=== PATIENT | female | born 1995 | race Caucasian/White ===

== ENCOUNTER 2020-11-21 23:41 | Emergency (ER) | payer MEDICAID ==
[~2020-11-21] VITALS: Ht 157.5 cm; Wt 87.0 kg
[2020-11-22 00:40] VITALS: BP 132/78
== END 2020-11-22 01:50 | disposition left against medical advice (07) ==
LOC: ER 23:41
DX: R10.2 Pelvic and perineal pain (principal); N89.8 Other specified noninflammatory disorders of vagina
CPT/HCPCS: 99281

== ENCOUNTER 2021-02-25 21:27 | Observation (INO) | payer MEDICAID ==
[~2021-02-25] VITALS: Ht 157.5 cm; Wt 91.2 kg
[2021-02-25] MEDS ORDERED: PNV1TAB.3 PO (22:06)
== END 2021-02-26 00:01 | disposition home or self-care (01) ==
LOC: 8 EST A/PP 21:27
PROVIDERS: ADMIT Obstetrics & Gynecology; ATTEND Obstetrics & Gynecology
DX: O26.892 Other specified pregnancy related conditions, second trimester (principal); R10.2 Pelvic and perineal pain; O36.8120 Decreased fetal movements, second trimester, not applicable or unspecified; Z3A.23 23 weeks gestation of pregnancy
CPT/HCPCS: 59025; 76805; G0378; 99281; G0379

== ENCOUNTER 2021-04-08 11:49 | Observation (INO) | payer MEDICAID ==
[~2021-04-08] VITALS: Ht 157.5 cm; Wt 93.9 kg
[~2021-04-08 11:49] MED LIST: PNV1TAB.3 PO
[2021-04-08] MEDS ORDERED: NITR-87 PO (13:12)
== END 2021-04-08 15:55 | disposition home or self-care (01) ==
LOC: 8 EST LDRP 11:49
PROVIDERS: ADMIT Obstetrics & Gynecology; ATTEND Obstetrics & Gynecology
DX: O26.893 Other specified pregnancy related conditions, third trimester (principal); R10.33 Periumbilical pain; Z3A.28 28 weeks gestation of pregnancy
CPT/HCPCS: 59025; 76805; 76818; 99281; G0378

== ENCOUNTER 2021-06-12 10:36 | Observation (INO) | payer MEDICAID ==
[~2021-06-12] VITALS: Ht 157.5 cm; Wt 97.1 kg
[~2021-06-12 10:36] MED LIST changes: +NITR-87 PO
== END 2021-06-12 12:10 | disposition home or self-care (01) ==
LOC: 8EST NSY 10:36 → 8 EST A/PP 10:56
PROVIDERS: ADMIT Obstetrics & Gynecology; ATTEND Obstetrics & Gynecology
DX: O26.893 Other specified pregnancy related conditions, third trimester (principal); R10.9 Unspecified abdominal pain; Z3A.37 37 weeks gestation of pregnancy
CPT/HCPCS: 59025; G0378; 99281

== ENCOUNTER 2021-07-03 10:59 | Inpatient (IN) | payer MEDICAID ==
[~2021-07-03] VITALS: Ht 157.5 cm; Wt 102.5 kg
[2021-07-03] MEDS ORDERED: DEXT 5%/LR + PITOCIN 20UNITS/L 1,000 ML IV SCH (12:00)
[2021-07-03] MEDS ORDERED: LIDOCAINE HCL 1% 20ML VIAL (Pyxis) INJ INFIL SCH (12:00)
[2021-07-03] MEDS ORDERED: NALOXONE HCL 0.4 MG/ML 1ML VIAL IM PRN (12:00)
[2021-07-03] MEDS ORDERED: METHYLERGONOVINE MALEATE 0.2 MG/ML IM PRN (12:00)
[2021-07-03] MEDS ORDERED: BUTORPHANOL TARTRATE 2 MG/ML VIAL IV PRN (12:00)
[2021-07-03] MEDS ORDERED: PENICILLIN G POTASSIUM 5 MMU in DEXT 5% WATER 100 ML IV NR (13:00)
[2021-07-03 14:04] LABS: BASOPHILS % 0.2 % (0.0-2.0); CLARITY URINE CLEAR (CLEAR); COLOR URINE DK YELLOW (YELLOW); EOSINOPHILS % 0.2 % (0.0-5.0); HEMATOCRIT. 38.2 % (36.0-48.0); HEMOGLOBIN. 13.2 g/dL (12.0-16.0); KETONES URINE TRACE (NEGATIVE); LEUKOCYTE ESTERASE URINE TRACE (NEGATIVE); LYMPHOCYTES % 12.7 % (20.0-50.0); MEAN CORPUSCULAR HEMOGLOBIN 30.8 pg (28.0-32.0); MEAN CORPUSCULAR VOLUME 88.9 fL (81.0-99.0); MEAN PLATELET VOLUME 10.8 fl (7.4-10.4); MONOCYTES % 7.5 % (2.0-8.0); NEUTROPHILS % 79.4 % (40.0-76.0); NITRITE URINE NEGATIVE (NEGATIVE); OCCULT BLOOD URINE NEGATIVE (NEGATIVE); PLATELET 211 x1000/uL (130-400); PROTEIN URINE 1+ (NEGATIVE); SPECIFIC GRAVITY URINE 1.035 (1.005-1.030)
[2021-07-03] MEDS: LACTATED RINGERS 1,000 ML IV SCH ×3 (14:07→22:28)
[2021-07-03 14:23] LABS: INR 0.9; PARTIAL THROMBOPLASTIN TIME 26.5 sec (23.4-31.0); PROTHROMBIN TIME 10.1 sec (9.6-11.0)
[2021-07-03 14:56] LABS: *BENZODIAZEPINES SCREEN URINE NEGATIVE (NEGATIVE); *COCAINE SCREEN URINE NEGATIVE (NEGATIVE); CANNABINOID URINE SCREEN NEGATIVE (NEGATIVE); METHADONE URINE SCREEN NEGATIVE (NEGATIVE); OPIATES URINE SCREEN NEGATIVE (NEGATIVE); PHENCYCLIDINE URINE SCREEN NEGATIVE (NEGATIVE)
[2021-07-03 14:58] LABS: *BARBITURATES SCREEN URINE NEGATIVE (NEGATIVE)
[2021-07-03 14:59] LABS: *AMPHETAMINES SCREEN URINE NEGATIVE (NEGATIVE)
[2021-07-03 16:31] LABS: HEPATITIS B SURFACE ANTIGEN NEGATIVE
[2021-07-03] MEDS: PENICILLIN G POTASSIUM 2.5 MMU in DEXTROSE 5% WATER 50 ML IV SCH ×2 (18:00→22:44)
[2021-07-03] MEDS ORDERED: PHENYLEPHRINE HCL 10 MG/ML 1ML (IV VIAL) IV ONE (21:18)
[2021-07-03] MEDS ORDERED: ROPIVACAINE HCL/PF EPIDURAL 200 ML EPI SCH (21:35)
[2021-07-04] MEDS ORDERED: IBUPROFEN 400MG TABLET PO PRN (03:15)
[2021-07-04] MEDS ORDERED: ACETAMINOPHEN WITH CODEINE 300/30MG TABLET PO PRN (03:15)
[2021-07-04] MEDS ORDERED: BENZOCAINE/LANOLIN/ALOE VERA SPRAY TOP PRN (03:15)
[2021-07-04] MEDS ORDERED: BISACODYL 10MG SUPP PR PRN (03:15)
[2021-07-04] MEDS ORDERED: LANOLIN OINT 7GM TUBE TOP PRN (03:15)
[2021-07-04] MEDS ORDERED: DIPHENHYDRAMINE 25MG CAPSULE PO PRN (03:15)
[2021-07-04] MEDS ORDERED: GLYCERIN/WITCH HAZEL LEAF MEDICATED PAD TOP PRN (03:15)
[2021-07-04] MEDS ORDERED: HEMORRHOIDAL SUPP PR PRN (03:15)
[2021-07-04] MEDS ORDERED: RHO(D) IMMUNE GLOBULIN 300 MCG/SYR IM PRN (03:15)
[2021-07-04] MEDS ORDERED: DEXT 5%/LR + PITOCIN 20UNITS/L 1,000 ML IV SCH (03:30)
[2021-07-04 05:30] VITALS: BP 106/55
[2021-07-04] MEDS: IBUPROFEN 800MG TABLET PO PRN ×2 (05:53→20:16)
[2021-07-04 06:00] VITALS: BP 105/56
[2021-07-04 08:30] VITALS: BP 111/65
[2021-07-04] MEDS ORDERED: PRENATAL VIT/FE FUMARATE/FA TABLET PO SCH (09:00)
[2021-07-04 16:22] VITALS: BP 116/65
[2021-07-04 20:00] VITALS: BP 101/61
[2021-07-04] MEDS: MAGNESIUM/ALUMINUM HYDROXIDE/SIMETHICONE 30ML UDC PO SCH (20:15)
[2021-07-04] MEDS: SIMETHICONE 80MG TABLET CHEW PO SCH (20:16)
[2021-07-04] MEDS ORDERED: DOCUSATE SODIUM 100MG CAPSULE PO SCH (21:00)
[2021-07-05 04:00] VITALS: BP 114/62
[2021-07-05] MEDS: IBUPROFEN 800MG TABLET PO PRN (05:23)
[2021-07-05 07:11] LABS: BASOPHILS % 0.3 % (0.0-2.0); EOSINOPHILS % 0.6 % (0.0-5.0); LYMPHOCYTES % 19.9 % (20.0-50.0); MEAN CORPUSCULAR HEMOGLOBIN 31.1 pg (28.0-32.0); MEAN CORPUSCULAR VOLUME 88.3 fL (81.0-99.0); MEAN PLATELET VOLUME 10.2 fl (7.4-10.4); MONOCYTES % 7.7 % (2.0-8.0); NEUTROPHILS % 71.5 % (40.0-76.0); PLATELET 169 x1000/uL (130-400); RED BLOOD CELL COUNT 3.85 mill/uL (4.2-5.4); RED CELL DISTRIBUTION WIDTH 13.8 % (11.6-14.6)
[2021-07-05 08:50] VITALS: BP 111/58
[2021-07-05] MEDS ORDERED: FERROUS SULFATE 325MG TABLET PO SCH (09:00)
[2021-07-05] MEDS: SIMETHICONE 80MG TABLET CHEW PO SCH (09:32)
[2021-07-05] MEDS: MAGNESIUM/ALUMINUM HYDROXIDE/SIMETHICONE 30ML UDC PO SCH (09:32)
== END 2021-07-05 13:45 | disposition home or self-care (01) | DRG 560 ==
LOC: OBSVTOIN 10:59 → 8 EST LDRP 10:59 → 3WST 12:30 → 8 EST LDRP 12:46
PROVIDERS: ADMIT Obstetrics & Gynecology; ATTEND Obstetrics & Gynecology
PROC: 10E0XZZ Delivery of Products of Conception, External Approach (ICD-10-PCS; principal; 2021-07-04)
PROC: 0KQM0ZZ Repair Perineum Muscle, Open Approach (ICD-10-PCS; 2021-07-04)
PROC: 3E0R3BZ Introduction of Anesthetic Agent into Spinal Canal, Percutaneous Approach (ICD-10-PCS; 2021-07-04)
PROC: 00HU33Z Insertion of Infusion Device into Spinal Canal, Percutaneous Approach (ICD-10-PCS; 2021-07-04)
DX: O70.1 Second degree perineal laceration during delivery (principal); Z37.0 Single live birth; Z20.822 Contact with and (suspected) exposure to COVID-19; Z3A.39 39 weeks gestation of pregnancy
CPT/HCPCS: 36415; 76805; 76818; 80305; 81003; 85025; 86592; 86703; 86762; 86850; 86900; 87340; 87426; 88307; G0378; J2370; J2540; J2590; J2795; J7060; J7120; U0003; U0005; A4315